=== PATIENT | female | born 1985 | race Caucasian/White ===

== ENCOUNTER 2021-08-17 06:35 | Day surgery (SDC) | payer OTHER ==
[~2021-08-17] VITALS: Ht 162.6 cm; Wt 81.6 kg
[~2021-08-17 06:35] MED LIST: ALEVE220 MG PO; ASCORBIC ACID500 MG PO; CLARITIN10 MG PO; CYMBALTA 30MG C30 MG PO; SUPER COLLAGEN PO; VITAMIN B125000 MCG PO; VITAMIN D3125 MC2 PO; [UNRECOGNIZED DRUG - OTHER] PO
[2021-08-17 07:07] LABS: HCG (URINE) SCREEN NEGATIVE (NEGATIVE)
[2021-08-17 07:37] LABS: HCT 43.1 % (37.0-47.0); HGB 14.3 g/dl (12.5-16.0); MCH 30.2 pg (25.0-31.0); MCHC 33.2 g/dL (32.0-36.0); MCV 91.1 fL (78.0-100.0); MPV 10.6 fL (6.0-9.5); RBC 4.73 M/uL (4.20-5.40); RDW 12.4 % (11.5-14.0); WBC 5.3 K/uL (4.0-10.5)
[2021-08-17] MEDS ORDERED: KETOROLAC TROME10 MG PO (11:47)
== END 2021-08-17 18:18 | disposition home or self-care (01) ==
LOC: FAS 06:35 → FMS 15:04 → FAS 18:18
PROVIDERS: Anesthesiology
DX: D25.1 Intramural leiomyoma of uterus (principal); K66.0 Peritoneal adhesions (postprocedural) (postinfection); J45.909 Unspecified asthma, uncomplicated; Z90.79 Acquired absence of other genital organ(s); Z88.6 Allergy status to analgesic agent; Z98.51 Tubal ligation status; Z87.891 Personal history of nicotine dependence; Z20.822 Contact with and (suspected) exposure to COVID-19
CPT/HCPCS: 36415; 84703; 86850; 86900; 86901; 94010; J0690; J1100; J1170; J2250; J2405; J2704; J3010; J7120; Q0162